=== PATIENT | female | born 1960 | race Caucasian/White ===

== ENCOUNTER → 2019-08-25 | Outpatient (CLI) | payer BC, OTHER ==
[~2019-08-25] MED LIST: DILT30 PO; INDO50 PO; LISI20 PO; LISI5 PO; MULVIT PO; PRED20 PO
== END | disposition home or self-care (01) ==
LOC: LAB 12:20 → LAB SHORT 12:20
DX: L08.9 Local infection of the skin and subcutaneous tissue, unspecified (principal)
CPT/HCPCS: 87070; 87075; 87147; 87205

== ENCOUNTER 2022-07-09 19:44 | Inpatient (IN) | payer OTHER ==
[~2022-07-09] VITALS: Ht 154.9 cm; Wt 48.7 kg
[2022-07-09 20:56] LABS: Source, Urine Clean Catch
[2022-07-09 21:02] LABS: Appearance, Urine Clear (Clear); Bilirubin, Urine Neg (Neg); Blood, Urine Neg (Neg); Color, Urine Yellow (P-Yellow); Glucose Qualitative, Urine Neg (Neg); Ketones, Urine Neg (Neg); Leukocyte Esterase, Urine 1+ (Neg); Nitrite, Urine Neg (Neg); Protein, Urine 2+ (Neg); Urobilinogen, Urine 3+ (Normal)
[2022-07-09 21:39] LABS: Bacteria Few /hpf; Red Blood Cells, Urine 0-2 /hpf (0-2); Squamous Epithelial Cells Few /hpf (Few)
[2022-07-09 21:40] LABS: Triglycerides 66 mg/dL (30-160)
--- NOTE | 2022-07-10 01:08 | NUR ---
PATIENT TO MEDICAL FLOOR. ARRIVED @ 0105. BED WEIGHT UPON ADMIT OF 48.7KG.
[2022-07-10 05:43] LABS: BASOPHILS ABSOLUTE AUTO 0.02 K/mm3 (0.00-0.23); BASOPHILS PERCENT AUTO 0 % (0-2); EOSINOPHILS PERCENT AUTO 0 % (0-6); Hematocrit 39.7 % (33.0-51.0); Hemoglobin 14.1 g/dL (11.5-16.0); IMMATURE GRAN ABSOLUTE AUTO 0.18 K/mm3 (0.00-0.10); IMMATURE GRAN PERCENT AUTO 1 % (0-1); LYMPHOCYTES ABSOLUTE AUTO 0.44 K/mm3 (0.84-5.20); LYMPHOCYTES PERCENT AUTO 2 % (21-46); MONOCYTES ABSOLUTE AUTO 1.16 K/mm3 (0.16-1.47); MONOCYTES PERCENT AUTO 6 % (4-13); Mean Corpuscular HGB 38.4 pg (26.0-34.0); Mean Corpuscular HGB Conc 35.5 g/dL (31.5-36.5); Mean Corpuscular Volume 108 fL (80-100); Mean Platelet Volume 10.5 fL (9.1-12.4); NEUTROPHILS ABSOLUTE AUTO 18.02 K/mm3 (1.96-9.15); NEUTROPHILS PERCENT AUTO 91 % (41-73); Platelet Count 216 K/mm3 (150-400); RDW Coefficient Variation 12.7 % (11.7-14.2); RDW Standard Deviation 50.7 fL (35.1-46.3); Red Blood Cell Count 3.67 M/mm3 (3.80-5.20); White Blood Cell Count 19.82 K/mm3 (4.00-11.30)
[2022-07-10 06:01] LABS: Albumin, Blood 2.8 g/dL (3.4-5.0); Albumin/Globulin Ratio 0.8 (0.8-1.8); Bilirubin, Total 1.6 mg/dL (0.1-1.0); Bun/Creatinine Ratio 25.5 (12.0-20.0); Calcium, Blood 8.2 mg/dL (8.5-10.1); Creatinine, Blood 0.63 mg/dL (0.40-1.00); Globulin, Blood 3.4 g/dL (2.2-4.0); Potassium, Blood 3.8 mmol/L (3.5-5.5); Total Protein, Blood 6.2 g/dL (6.4-8.2)
--- NOTE | 2022-07-10 07:35 | NUR ---
PRODUCTION CONTROL PEGBOARD CLERK SUMMARY: A&Ox4. PLEASANT AND COOPERATIVE WITH CARE. CALLS APPROPRIATELY AND IS ABLE TO COMMUNICATE NEEDS EFFECTIVELY. ORIENTED TO OWN ABILITIES AND EXHIBITS GOOD JUDGMENT. C/O ABD PAIN; MEDICATED x2 PRN FENTANYL. IV LEFT AC INFUSING D51/2NS. NPO x CHIPS AND SIPS. LABS DRAWN THIS AM; NO CRITICAL VALUES RECEIVED AT THIS TIME. REPORT TO ONCOMING RN.
--- NOTE | 2022-07-10 18:11 | NUR ---
SHIFT SUMMARY PT IS ALERT AND ORIENTED X4. COMPLAINTS OF SEVERE PAIN IN THE ABDOMEN THAT RADIATES TO THE BACK. TREATED PAIN PER EMAR. INDEPENDENT IN THE ROOM, R/A. TOLORATING CLEAR LIQUIDS. BED IS IN THE LOWEST POSITION WITH CALL LIGHT IN REACH. PT CALLS APPROPRIATELY.
--- NOTE | 2022-07-11 05:32 | NUR ---
SHIFT NOTE PATIENT IS ALERT AND ORIENTED X4, COOPERATIVE WITH CARE. ABD PAIN TREATED PER MAR WITH GOOD RESULTS. IV INFUSING NS AT 75, AND WNL. UP WITH STAND BY TO MANAGE LINES. I/O COLECTED WITH FAIR UO MEASURED, BUT MISSED HAT WELL. RA, SOME HTN, BUT OTHERSISE VSS. WILL CONT TO MONITOR.
[2022-07-11 05:42] LABS: Hematocrit 37.3 % (33.0-51.0); Hemoglobin 12.8 g/dL (11.5-16.0); Mean Corpuscular HGB 38.3 pg (26.0-34.0); Mean Corpuscular HGB Conc 34.3 g/dL (31.5-36.5); Mean Corpuscular Volume 112 fL (80-100); Mean Platelet Volume 11.2 fL (9.1-12.4); Platelet Count 204 K/mm3 (150-400); RDW Coefficient Variation 12.6 % (11.7-14.2); RDW Standard Deviation 51.8 fL (35.1-46.3); Red Blood Cell Count 3.34 M/mm3 (3.80-5.20); White Blood Cell Count 16.47 K/mm3 (4.00-11.30)
[2022-07-11 06:23] LABS: Albumin, Blood 2.3 g/dL (3.4-5.0); Albumin/Globulin Ratio 0.7 (0.8-1.8); Bilirubin, Total 1.5 mg/dL (0.1-1.0); Bun/Creatinine Ratio 25.9 (12.0-20.0); Calcium, Blood 8.4 mg/dL (8.5-10.1); Creatinine, Blood 0.5 mg/dL (0.40-1.00); Globulin, Blood 3.4 g/dL (2.2-4.0); Magnesium, Blood 1.9 mg/dL (1.6-2.4); Phosphorus, Blood 2.4 mg/dL (2.5-4.9); Potassium, Blood 3.7 mmol/L (3.5-5.5); Total Protein, Blood 5.7 g/dL (6.4-8.2)
--- NOTE | 2022-07-11 17:30 | NUR ---
SHIFT SUMMARY: PT A&O X4. PT HAS BEEN PLEASANT AND COOPERATIVE THIS SHIFT. PT RECEIVED BAG OF SODIUM PHOSPHATE THIS MORNING WELL MAGNESIUM, FOLIC ACID, THIAMINE, AND ROCEPHIN. PT TOLERATED IV MEDICATIONS WELL. PT HAS BEEN RECEIVING Q4 PRN DILAUDID. STATES MEDICATION IS HELPING WITH THE PAIN IN SIDES OF ABDOMEN AND BACK. NS RUNNING @75/HR. PT TOLERATING FULL LIQUID AND MECHANICAL DIET. CALL LIGHT IN REACH. WILL CONTINUE TO MONITOR.
[2022-07-12 05:32] LABS: Hematocrit 33.9 % (33.0-51.0); Hemoglobin 11.9 g/dL (11.5-16.0); Mean Corpuscular HGB 38.5 pg (26.0-34.0); Mean Corpuscular HGB Conc 35.1 g/dL (31.5-36.5); Mean Corpuscular Volume 110 fL (80-100); Platelet Count 233 K/mm3 (150-400); RDW Coefficient Variation 12.2 % (11.7-14.2); RDW Standard Deviation 49.2 fL (35.1-46.3); Red Blood Cell Count 3.09 M/mm3 (3.80-5.20); White Blood Cell Count 13.82 K/mm3 (4.00-11.30)
[2022-07-12 06:00] LABS: Albumin, Blood 2.2 g/dL (3.4-5.0); Albumin/Globulin Ratio 0.7 (0.8-1.8); Bilirubin, Total 1.6 mg/dL (0.1-1.0); Bun/Creatinine Ratio 17.4 (12.0-20.0); Creatinine, Blood 0.46 mg/dL (0.40-1.00); Globulin, Blood 3.3 g/dL (2.2-4.0); Magnesium, Blood 2.2 mg/dL (1.6-2.4); Phosphorus, Blood 2.1 mg/dL (2.5-4.9); Potassium, Blood 3.5 mmol/L (3.5-5.5); Total Protein, Blood 5.5 g/dL (6.4-8.2)
--- NOTE | 2022-07-12 06:21 | NUR ---
SHIFT SUMMARY PT A&OX 4, PT LAYING IN BED DURING BEDSIDE ROUNDS- PT REPORTS PAIN TOLERABLE AT THAT TIME D/T PT GETTING DILAUID RECENTLY, PT CALLED [facility] PAINTER CRYING THAT SHE DIDN'T GET SCHEDULED PAIN MEDICATION- PT NOTIFIED THAT PAIN MED IS NOT SCHEDULED AND SHE NEEDS TO ASK - EDUCATED PT OF IMPORTANCE OF NOT LETTING THE PAIN GET OUT OF CONTROL- PT STATED UNDERSTANDING- PT CALLED IN THE SHIFT AND REQUESTED PAIN MEDICATION - PT INDEPENDENT IN ROOM, CALL LIGHT WITHIN REACH
[2022-07-12] MEDS ORDERED: AMLO5 PO (13:58)
[2022-07-12] MEDS ORDERED: Norco 5-325 Ta1 EACH PO (13:59)
[2022-07-12] MEDS ORDERED: CEFD300 PO (14:00)
[2022-07-12] MEDS ORDERED: VISBIOME 112.51 EACH PO (14:00)
[2022-07-12] MEDS ORDERED: ACET325 PO (14:01)
--- NOTE | 2022-07-12 14:41 | NUR ---
DISCHARGE: PT D/C @1440 WITH DAUGHTER. IV TAKEN OUT W/O COMPLICATIONS. TELE SENT BACK TO [facility]. EXPLAINED TO PT TO CALL [facility] TO MAKE FOLLOW-UP APT WITHIN 2 WEEKS. DISCUSSED NEW MEDICATIONS WITH PT WELL ADVANCING DIET TOLERATED. HARD SCRIPT PROVIDED TO PT. FAXED NEW MEDICATIONS TO [facility]. ALL BELONGINGS SENT WITH PT.
== END 2022-07-12 14:40 | disposition home or self-care (01) | DRG 871 ==
LOC: ER 19:44 → MEDS 19:45
PROVIDERS: Family Medicine; Student in an Organized Health Care Education/Training Program; ADMIT Internal Medicine
PROC: HZ2ZZZZ Detoxification Services for Substance Abuse Treatment (ICD-10-PCS; principal; 2022-07-10)
PROC: 3E03329 Introduction of Other Anti-infective into Peripheral Vein, Percutaneous Approach (ICD-10-PCS; 2022-07-10)
DX: A41.9 Sepsis, unspecified organism (principal); K85.20 Alcohol induced acute pancreatitis without necrosis or infection; N12 Tubulo-interstitial nephritis, not specified as acute or chronic; R65.20 Severe sepsis without septic shock; I10 Essential (primary) hypertension; E87.6 Hypokalemia; F10.20 Alcohol dependence, uncomplicated; F17.210 Nicotine dependence, cigarettes, uncomplicated; Z90.49 Acquired absence of other specified parts of digestive tract; Z98.890 Other specified postprocedural states; Z98.891 History of uterine scar from previous surgery; Z88.8 Allergy status to other drugs, medicaments and biological substances
CPT/HCPCS: 36415; 80053; 81001; 83605; 83690; 83735; 84100; 84478; 85025; 85027; 87040; 87086; 93005; 93010; 96365; 96366; 96375; 96376; 99285-25; A9270; G0378; J0696; J1170; J1650; J1885; J2405; J3010; J3411; J3475; J3480; J7030; J7042; J7050; J7060